=== PATIENT | male | born 1960 | race Caucasian/White ===

== ENCOUNTER → 2020-03-18 | Outpatient (CLI) | payer OTHER ==
[~2020-03-18] MED LIST: AMIODARONE HCL400 MG PO; ASPIRIN CHEWABL81 MG PO; BISACODYL10 MG PR; COMPAZINE10 MG PO; DRONABINOL5 MG PO; DURAGESIC1 EAC2 TD; DURAGESIC1 EAC3 TD; ELIQUIS5 MG PO; FENTANYL1 EACH TOP; GENERLAC10 GM/15 M PO; LINZESS290 MCG PO; LOPRESSOR 25 MG25 MG PO; MAGNESIUM CITR296 ML PO; MOVANTIK25 MG PO; MS CONTIN TAB S60 MG PO; MYCOSTATIN100000 UTS PO; NARCAN4 MG INH; NEURONTIN300 MG PO; OXYCODONE HCL10 MG PO; OXYCODONE HCL5 MG PO; PERCOCET 10-321 EACH PO; PREDNISONE5 MG PO; PROTONIX 40 MG40 M1 PO; ROXANOL SO10 MG/5 ML PO; ROXANOL SOLN20 MG/ML PO; SYNTHROID100 MCG PO; ZOFRAN 4 MG4 MG/5 ML GT; ZOFRAN ODT 4 MG4 MG PO
[2020-03-18 12:52] LABS: HEMOGLOBIN 14.3 gm/dl (14.0-17.5); RED BLOOD COUNT 5.71 M/UL (4.20-5.50)
== END ==
LOC: LAB 12:23
PROVIDERS: Internal Medicine Medical Oncology
DX: C64.9 Malignant neoplasm of unspecified kidney, except renal pelvis (principal)
CPT/HCPCS: 36415; 80053; 84443; 85025

== ENCOUNTER → 2020-04-10 | Outpatient (CLI) | payer OTHER | LOC: HEART 5 10:57 | DX: I48.19 Other persistent atrial fibrillation (principal); R06.02 Shortness of breath; I51.7 Cardiomegaly | CPT/HCPCS: 93306 ==

== ENCOUNTER 2020-05-17 21:05 | Emergency (ER) | payer OTHER ==
[~2020-05-17 21:05] MED LIST changes: -BISACODYL10 MG PR; -COMPAZINE10 MG PO; -DRONABINOL5 MG PO; -DURAGESIC1 EAC2 TD; -DURAGESIC1 EAC3 TD; -FENTANYL1 EACH TOP; -GENERLAC10 GM/15 M PO; -LINZESS290 MCG PO; -MAGNESIUM CITR296 ML PO; -MOVANTIK25 MG PO; -MS CONTIN TAB S60 MG PO; -MYCOSTATIN100000 UTS PO; -NARCAN4 MG INH; -NEURONTIN300 MG PO; -OXYCODONE HCL10 MG PO; -OXYCODONE HCL5 MG PO; -PERCOCET 10-321 EACH PO; -PREDNISONE5 MG PO; -PROTONIX 40 MG40 M1 PO; -ROXANOL SO10 MG/5 ML PO; -ROXANOL SOLN20 MG/ML PO; -SYNTHROID100 MCG PO; -ZOFRAN 4 MG4 MG/5 ML GT; -ZOFRAN ODT 4 MG4 MG PO
[2020-05-18 00:59] LABS: HEMOGLOBIN 14.6 gm/dl (14.0-17.5); RED BLOOD COUNT 5.58 M/UL (4.20-5.50)
[2020-05-18 01:18] LABS: BUN/CREATININE RATIO 12 (0-10)
[2020-05-18] MEDS ORDERED: ZOFRAN ODT 4 MG4 MG PO (04:28)
== END 2020-05-18 04:50 | disposition home or self-care (01) ==
LOC: ER1 21:05
PROVIDERS: Emergency Medicine
DX: E86.0 Dehydration (principal); Z20.822 Contact with and (suspected) exposure to COVID-19
CPT/HCPCS: 0240U; 71045; 72131; 80053; 81001; 82550; 82553; 83605; 83690; 83735; 83874; 84484; 85025; 93005; 96374; 96375; 99284; J2270; J2405; J7120

== ENCOUNTER 2020-07-06 10:24 | Emergency (ER) | payer OTHER ==
[~2020-07-06 10:24] MED LIST changes: +ZOFRAN ODT 4 MG4 MG PO
[2020-07-06 10:58] LABS: HEMOGLOBIN 13.3 gm/dl (14.0-17.5); RED BLOOD COUNT 5.21 M/UL (4.20-5.50); WHITE BLOOD COUNT 9.6 K/UL (4.5-11.0)
[2020-07-06 11:22] LABS: BUN/CREATININE RATIO 18 (0-10)
[2020-07-06] MEDS ORDERED: ROXANOL SO10 MG/5 ML PO ×2 (15:53→16:18)
== END 2020-07-06 16:18 | disposition home or self-care (01) ==
LOC: ER1 10:24
PROVIDERS: Emergency Medicine
DX: C79.51 Secondary malignant neoplasm of bone (principal); C64.9 Malignant neoplasm of unspecified kidney, except renal pelvis; K59.00 Constipation, unspecified
CPT/HCPCS: 80053; 83690; 85025; 96374; 96375; 96376; 99284; J1170; J2405; Q9967

== ENCOUNTER 2020-07-06 20:27 | Emergency (ER) | payer OTHER ==
[~2020-07-06 20:27] MED LIST changes: +ROXANOL SO10 MG/5 ML PO
== END 2020-07-06 22:39 | disposition home or self-care (01) ==
LOC: ER1 20:27
DX: C41.9 Malignant neoplasm of bone and articular cartilage, unspecified (principal); I48.91 Unspecified atrial fibrillation; Z79.01 Long term (current) use of anticoagulants
CPT/HCPCS: 96374; 96375; 99283; J1100; J1170

== ENCOUNTER 2020-07-18 16:56 | Emergency (ER) | payer OTHER ==
[2020-07-18] MEDS ORDERED: GENERLAC10 GM/15 M PO (22:00)
== END 2020-07-18 22:20 | disposition home or self-care (01) ==
LOC: ER1 16:56
DX: K59.00 Constipation, unspecified (principal); J44.9 Chronic obstructive pulmonary disease, unspecified; I48.91 Unspecified atrial fibrillation
CPT/HCPCS: 74018; 99284; J2212

== ENCOUNTER 2020-07-26 09:23 | Inpatient (IN) | payer OTHER ==
[~2020-07-26] VITALS: Ht 175.3 cm; Wt 77.1 kg
[~2020-07-26 09:23] MED LIST changes: +GENERLAC10 GM/15 M PO
[2020-07-26 09:57] LABS: HEMOGLOBIN 13.8 gm/dl (14.0-17.5); RED BLOOD COUNT 5.45 M/UL (4.20-5.50); WHITE BLOOD COUNT 12.5 K/UL (4.5-11.0)
[2020-07-26 10:22] LABS: BUN/CREATININE RATIO 14 (0-10)
[2020-07-26] MEDS ORDERED: OXYCODONE HCL10 MG PO (17:29)
[2020-07-26] MEDS ORDERED: DRONABINOL5 MG PO (17:30)
[2020-07-26] MEDS ORDERED: MS CONTIN TAB S60 MG PO (17:31)
[2020-07-26] MEDS ORDERED: PREDNISONE5 MG PO (17:32)
[2020-07-26] MEDS ORDERED: SYNTHROID100 MCG PO (17:33)
[2020-07-26] MEDS ORDERED: COMPAZINE10 MG PO (17:34)
[2020-07-27 05:41] LABS: HEMOGLOBIN 10.8 gm/dl (14.0-17.5); RED BLOOD COUNT 4.33 M/UL (4.20-5.50); WHITE BLOOD COUNT 8.3 K/UL (4.5-11.0)
[2020-07-27 06:16] LABS: BUN/CREATININE RATIO 16 (0-10)
[2020-07-28 05:11] LABS: HEMOGLOBIN 10.6 gm/dl (14.0-17.5); RED BLOOD COUNT 4.24 M/UL (4.20-5.50); WHITE BLOOD COUNT 5.3 K/UL (4.5-11.0)
[2020-07-28 05:35] LABS: BUN/CREATININE RATIO 11 (0-10)
[2020-07-29 04:42] LABS: HEMOGLOBIN 10.1 gm/dl (14.0-17.5); RED BLOOD COUNT 4.11 M/UL (4.20-5.50); WHITE BLOOD COUNT 4.3 K/UL (4.5-11.0)
[2020-07-29 05:04] LABS: BUN/CREATININE RATIO 9 (0-10)
[2020-07-30 05:37] LABS: HEMOGLOBIN 10.1 gm/dl (14.0-17.5); RED BLOOD COUNT 4.11 M/UL (4.20-5.50)
[2020-07-30 05:43] LABS: WHITE BLOOD COUNT 3.2 K/UL (4.5-11.0)
[2020-07-30 06:10] LABS: BUN/CREATININE RATIO 13 (0-10)
[2020-07-30 14:12] LABS: HEMATOCRIT 31.1 % (37.5-51.0)
[2020-08-01] MEDS ORDERED: GENERLAC10 GM/15 M PO (11:38)
[2020-08-01] MEDS ORDERED: DURAGESIC1 EAC2 TD (11:38)
[2020-08-01] MEDS ORDERED: PROTONIX 40 MG40 M1 PO (11:38)
[2020-08-01] MEDS ORDERED: MOVANTIK25 MG PO (11:38)
[2020-08-01] MEDS ORDERED: BISACODYL10 MG PR (11:38)
[2020-08-01] MEDS ORDERED: NARCAN4 MG INH (11:38)
[2020-08-01] MEDS ORDERED: OXYCODONE HCL5 MG PO (11:38)
[2020-08-01] MEDS ORDERED: MAGNESIUM CITR296 ML PO (11:44)
[2020-08-01] MEDS ORDERED: DURAGESIC1 EAC3 TD (17:27)
== END 2020-08-02 13:05 | disposition home or self-care (01) | DRG 542 ==
LOC: ER1 09:23 → CCU 12:16 → CDU 12:16 → CCU 18:07 → M/S 07-30 17:39
PROVIDERS: Emergency Medicine; Family Medicine; Physician Assistant Medical; Registered Nurse; ADMIT Internal Medicine
PROC: 5A2204Z Restoration of Cardiac Rhythm, Single (ICD-10-PCS; principal; 2020-07-26)
DX: C79.51 Secondary malignant neoplasm of bone (principal); R57.0 Cardiogenic shock; D61.818 Other pancytopenia; R64 Cachexia; R57.9 Shock, unspecified; C64.2 Malignant neoplasm of left kidney, except renal pelvis; G89.3 Neoplasm related pain (acute) (chronic); Z20.822 Contact with and (suspected) exposure to COVID-19; D75.89 Other specified diseases of blood and blood-forming organs; K59.00 Constipation, unspecified; D50.9 Iron deficiency anemia, unspecified; E16.2 Hypoglycemia, unspecified; E03.9 Hypothyroidism, unspecified; I48.0 Paroxysmal atrial fibrillation; R63.0 Anorexia; J44.9 Chronic obstructive pulmonary disease, unspecified; G89.4 Chronic pain syndrome; Z90.5 Acquired absence of kidney; Z80.3 Family history of malignant neoplasm of breast; Z84.89 Family history of other specified conditions; Z79.01 Long term (current) use of anticoagulants; Z92.21 Personal history of antineoplastic chemotherapy; Z79.899 Other long term (current) drug therapy; Z79.82 Long term (current) use of aspirin; Z68.25 Body mass index [BMI] 25.0-25.9, adult
CPT/HCPCS: 36415; 71045; 74018; 80048; 80053; 82550; 82553; 82607; 82728; 82747; 83540; 83550; 83735; 83874; 83880; 83921; 84484; 85025; 85027; 92960; 93005; 93308; 96374; 96375; 97116-GP-CQ; 97162; 97166; 97530-GP-CQ; 99285; J1160; J1170; J2250; J2270; J2405; J3475; J7030; J7120; U0002

== ENCOUNTER 2020-09-10 11:39 | Inpatient (IN) | payer OTHER ==
[~2020-09-10] VITALS: Ht 177.8 cm; Wt 59.0 kg
[~2020-09-10 11:39] MED LIST changes: +BISACODYL10 MG PR; +COMPAZINE10 MG PO; +DRONABINOL5 MG PO; +DURAGESIC1 EAC2 TD; +DURAGESIC1 EAC3 TD; +MAGNESIUM CITR296 ML PO; +MOVANTIK25 MG PO; +MS CONTIN TAB S60 MG PO; +NARCAN4 MG INH; +OXYCODONE HCL10 MG PO; +OXYCODONE HCL5 MG PO; +PREDNISONE5 MG PO; +PROTONIX 40 MG40 M1 PO; +SYNTHROID100 MCG PO
[2020-09-10 12:18] LABS: HEMOGLOBIN 12.9 gm/dl (14.0-17.5); RED BLOOD COUNT 5.14 M/UL (4.20-5.50); WHITE BLOOD COUNT 4.3 K/UL (4.5-11.0)
[2020-09-10 13:36] LABS: BUN/CREATININE RATIO 16 (0-10)
[2020-09-10] MEDS ORDERED: DRONABINOL5 MG PO (14:55)
[2020-09-10] MEDS ORDERED: LINZESS290 MCG PO (14:56)
[2020-09-10] MEDS ORDERED: NEURONTIN300 MG PO (14:56)
[2020-09-10] MEDS ORDERED: PERCOCET 10-321 EACH PO (15:33)
[2020-09-11 01:45] LABS: HEMOGLOBIN 11.7 gm/dl (14.0-17.5); RED BLOOD COUNT 4.9 M/UL (4.20-5.50)
[2020-09-11 01:48] LABS: WHITE BLOOD COUNT 3.1 K/UL (4.5-11.0)
[2020-09-11 02:18] LABS: BUN/CREATININE RATIO 11 (0-10)
[2020-09-12 02:42] LABS: HEMOGLOBIN 11.6 gm/dl (14.0-17.5); RED BLOOD COUNT 4.64 M/UL (4.20-5.50); WHITE BLOOD COUNT 3.7 K/UL (4.5-11.0)
[2020-09-12 03:05] LABS: BUN/CREATININE RATIO 9 (0-10)
[2020-09-13 05:14] LABS: BUN/CREATININE RATIO 6 (0-10)
--- NOTE | 2020-09-14 14:41 | NUR ---
PT REQUEST THE PT NOT HAVE ANYTHING BY MOUTH. PT HAS REFUSED ALL REQUEST FOR TURNS AND TO BATHED NUMEROURS TIMES. HE STATES IT HURTS TO MUCH TO BE MOVED.
--- NOTE | 2020-09-15 06:00 | NUR ---
PATIENT REFUSED TURNS OVERNIGHT, COMPLAINING OF HURTING TOO MUCH TO BE TURNED.
[2020-09-16 03:08] LABS: RED BLOOD COUNT 4.11 M/UL (4.20-5.50); WHITE BLOOD COUNT 3.6 K/UL (4.5-11.0)
[2020-09-16 03:38] LABS: BUN/CREATININE RATIO 2 (0-10)
[2020-09-18] MEDS ORDERED: ZOFRAN 4 MG4 MG/5 ML GT (10:15)
[2020-09-18] MEDS ORDERED: ROXANOL SOLN20 MG/ML PO (10:15)
[2020-09-18] MEDS ORDERED: FENTANYL1 EACH TOP (10:15)
[2020-09-18] MEDS ORDERED: MYCOSTATIN100000 UTS PO (13:37)
== END 2020-09-18 15:20 | DRG 686 ==
LOC: ER1 11:39 → CDU 14:34 → PROG CARE 14:34
PROVIDERS: Physician Assistant Medical; Student in an Organized Health Care Education/Training Program; ADMIT Internal Medicine
DX: C64.9 Malignant neoplasm of unspecified kidney, except renal pelvis (principal); E43 Unspecified severe protein-calorie malnutrition; J69.0 Pneumonitis due to inhalation of food and vomit; J90 Pleural effusion, not elsewhere classified; E87.1 Hypo-osmolality and hyponatremia; C79.49 Secondary malignant neoplasm of other parts of nervous system; R64 Cachexia; D61.818 Other pancytopenia; Z68.1 Body mass index [BMI] 19.9 or less, adult; J98.11 Atelectasis; E87.6 Hypokalemia; Z20.822 Contact with and (suspected) exposure to COVID-19; N30.90 Cystitis, unspecified without hematuria; K57.30 Diverticulosis of large intestine without perforation or abscess without bleeding; Z51.5 Encounter for palliative care; Z66 Do not resuscitate; G89.4 Chronic pain syndrome; R62.7 Adult failure to thrive; D63.0 Anemia in neoplastic disease; E03.9 Hypothyroidism, unspecified; D69.6 Thrombocytopenia, unspecified; I48.0 Paroxysmal atrial fibrillation; D50.9 Iron deficiency anemia, unspecified; Z79.890 Hormone replacement therapy; Z79.52 Long term (current) use of systemic steroids; Z79.899 Other long term (current) drug therapy; Z80.3 Family history of malignant neoplasm of breast; Z79.01 Long term (current) use of anticoagulants; Z79.82 Long term (current) use of aspirin; Z90.5 Acquired absence of kidney; Z81.8 Family history of other mental and behavioral disorders
CPT/HCPCS: 0240U; 36415; 36600; 71045; 80048; 80053; 80202; 81001; 82550; 82553; 82803; 82962; 83605; 83735; 83874; 83880; 84100; 84484; 85025; 85027; 87040; 87070; 87086; 87205; 92610; 93005; 94760; 96365; 96366; 96375; 99285; J0610; J0692; J1160; J1335; J2270; J2405; J2543; J3370; J3480; J7030; J7070; Q9967